=== PATIENT | female | born 1980 | race African-American/Black ===

== ENCOUNTER 2020-05-12 14:55 | Emergency (ER) | payer SELFPAY ==
[~2020-05-12] VITALS: Ht 170.2 cm; Wt 84.0 kg
[2020-05-12] MEDS ORDERED: KETOROLAC 30MG/ML VIAL IV STA (15:51)
[2020-05-12] MEDS ORDERED: SODIUM CHLORIDE 0.9% 1,000 ML IV ONE (16:00)
[2020-05-12 16:34] LABS: CLARITY URINE CLEAR (CLEAR); COLOR URINE YELLOW (YELLOW); KETONES URINE NEGATIVE (NEGATIVE); LEUKOCYTE ESTERASE URINE NEGATIVE (NEGATIVE); NITRITE URINE NEGATIVE (NEGATIVE); OCCULT BLOOD URINE NEGATIVE (NEGATIVE); PH URINE 7.5 (4.5-8.0); PROTEIN URINE NEGATIVE (NEGATIVE); SPECIFIC GRAVITY URINE 1.012 (1.005-1.030)
[2020-05-12 16:36] LABS: HEMATOCRIT. 27.7 % (36.0-48.0); HEMOGLOBIN. 9.6 g/dL (12.0-16.0); MEAN CORPUSCULAR HEMOGLOBIN 30.4 pg (28.0-32.0); MEAN CORPUSCULAR VOLUME 87.5 fL (81.0-99.0); MEAN PLATELET VOLUME 8.9 fl (7.4-10.4); PLATELET 244 x1000/uL (130-400); RED BLOOD CELL COUNT 3.17 mill/uL (4.2-5.4); RED CELL DISTRIBUTION WIDTH 15.8 % (11.6-14.6)
[2020-05-12 16:41] LABS: CHLORIDE 110 mEq/L (98-107)
[2020-05-12] MEDS ORDERED: MORPHINE SULFATE 4 MG/ML CPJ (NOT FOR IM USE) IV STA (17:06)
[2020-05-12] MEDS ORDERED: ONDANSETRON HCL 4MG/2ML INJ IV STA (17:06)
[2020-05-12 17:09] LABS: PLATELET ESTIMATE NORMAL
[2020-05-12] MEDS ORDERED: OXYC-105 MT (18:14)
[2020-05-12 18:42] VITALS: BP 120/56
== END 2020-05-12 18:43 | disposition home or self-care (01) ==
LOC: ER 14:55
DX: D57.219 Sickle-cell/Hb-C disease with crisis, unspecified (principal); Z90.49 Acquired absence of other specified parts of digestive tract; Z88.6 Allergy status to analgesic agent; Z88.8 Allergy status to other drugs, medicaments and biological substances; Z88.1 Allergy status to other antibiotic agents; Z88.0 Allergy status to penicillin; Z98.890 Other specified postprocedural states; Z86.73 Personal history of transient ischemic attack (TIA), and cerebral infarction without residual deficits
CPT/HCPCS: 36415; 80053; 81003; 85025; 85044; 85660; 93005; 96361; 96374; 96375; 99284; J1885; J2270; J2405; J7030

== ENCOUNTER 2022-08-17 21:14 | Emergency (ER) | payer SELFPAY ==
[~2022-08-17] VITALS: Ht 170.2 cm; Wt 88.0 kg
[~2022-08-17 21:14] MED LIST: OXYC-105 MT
[2022-08-17] MEDS ORDERED: SULFAMETHOXAZOLE/TRIMETHOPRIM 800/160MG TABLET PO ONE (23:45)
[2022-08-17] MEDS ORDERED: IBUPROFEN 600MG TABLET PO ONE (23:45)
[2022-08-17] MEDS ORDERED: SULF1TAB48 MT (23:53)
[2022-08-17] MEDS ORDERED: IBUP-2029 MT (23:53)
[2022-08-18 00:03] VITALS: BP 119/66
== END 2022-08-18 00:25 | disposition home or self-care (01) ==
LOC: ER 21:14
DX: L03.213 Periorbital cellulitis (principal); Z90.89 Acquired absence of other organs; Z88.0 Allergy status to penicillin; Z88.5 Allergy status to narcotic agent; Z88.8 Allergy status to other drugs, medicaments and biological substances
CPT/HCPCS: 81025; 99283